=== PATIENT | female | born 1975 | race Two or more races ===

== ENCOUNTER 2019-01-29 10:45 | Outpatient (RCR) | payer BC ==
[~2019-01-29] VITALS: Ht 154.9 cm; Wt 83.5 kg
[2019-01-31] MEDS ORDERED: Neosporin Oint 15gm TOPIC ONE (10:30)
== END 2019-02-09 | disposition home or self-care (01) ==
LOC: WCC 10:45
DX: E11.621 Type 2 diabetes mellitus with foot ulcer (principal); L97.522 Non-pressure chronic ulcer of other part of left foot with fat layer exposed; M86.071 Acute hematogenous osteomyelitis, right ankle and foot; Z90.5 Acquired absence of kidney; I10 Essential (primary) hypertension; Z79.899 Other long term (current) drug therapy
CPT/HCPCS: 99204